=== PATIENT | male | born 1985 | race Caucasian/White ===

== ENCOUNTER 2018-02-24 | Outpatient (CLI) | payer BC ==
--- NOTE | 2018-02-27 14:24 | OP Clinic Progress Note ---
REASON FOR VISIT: Alton Staley returns for follow up of ankylosing spondylitis. He is not doing well. He is having worsening pain and stiffness in his neck, mid-back, and lower back. He felt he was doing much better on Cimzia but [employer] made him switch to Enbrel. It is lasting maybe 2 days and presently, his pain is 5 to 6 over 10 and morning stiffness is several hours. He fortunately has had no peripheral joint involvement. 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 PAST MEDICAL HISTORY: Ankylosing spondylitis. PAST SURGICAL HISTORY: None. PRESENT MEDICATIONS: 1. Adderall 10 mg daily. 2. Melatonin. 3. Claritin. 4. Enbrel 50 mg subcutaneous. 5. Omeprazole. ALLERGIES: He has no known drug allergies. FAMILY HISTORY: Positive for multiple sclerosis in his father. SOCIAL HISTORY: No smoking. No drinking. He works as a commercial loan coordinator. He is . REVIEW OF SYSTEMS: As above. He also has had problems with loose bowels in the morning but no blood or mucus. Otherwise, no change in his weight. No fatigue, weakness, or fevers. No red painful eyes. No chest pain, shortness of breath, cough or wheezing. No skin rashes, hives, photosensitivity, color changes in hands or feet in the cold. PHYSICAL EXAMINATION: GENERAL: He looks well. VITAL SIGNS: Height: 5 feet 4 inches. Weight: 168. T: 96.7, R: 20, heart rate 68, BP: 120/70. HEENT: Sclerae are anicteric. Conjunctivae are pink. No stomatitis or glossitis. LUNGS: Clear bilaterally with no crackles or wheezing. HEART: Regular rhythm. ABDOMEN: Soft and nontender. VASCULAR: No edema or cyanosis. PERIPHERAL JOINTS: No synovitis at the DIPs, PIPs, MCPs, wrists, elbows, shoulders, hips, knees, ankles, and feet. He has severe limitation in cervical flexion, extension, lateral rotation and flexion. Severe limitation in anterior lumbar flexion, rotation, and extension. LABORATORIES: Last labs on file, his sedimentation rate was 29. QuantiFERON-TB Gold was negative. Hepatitis screening was negative. Normal CBC and CMP. IMPRESSION: Ankylosing spondylitis, not responding to Enbrel PLAN: I would like him back on Cimzia when he felt well with no symptoms. This may deem a letter of medical necessity. cc: Dr. Laz GALVAN
== END 2018-02-24 14:52 ==
DX: M45.9 Ankylosing spondylitis of unspecified sites in spine (principal)
CPT/HCPCS: 99213; 99214